=== PATIENT | female | born 1950 | race Caucasian/White ===

== ENCOUNTER 2019-12-19 08:14 | Emergency (ER) | payer MEDICARE, SELFPAY ==
--- NOTE | ~2019-12-19 | XR_ITS ---
XR foot RT min 3V DATE: 12/19/2019 08:51 INDICATION: Foot popliteal walking up stairs this morning. Pain. TECHNIQUE: 4 views COMPARISON: None FINDINGS: There is a nondisplaced acute transverse fracture of the very proximal shaft of the fifth m etatarsal bone. There are prominent osteoarthritic changes of the tarsal and first through third tarsometatarsal join ts. Plantar calcaneal enthesopathy. IMPRESSION: Transverse nondisplaced fracture of the very proximal shaft of the fifth metatarsal bone Reviewed, dictated and finalized at location A.
[2019-12-19 08:23] VITALS: BP 177/79; PULSE 93; RESP 17; TEMP 36.6; O2SAT 100
--- NOTE | 2019-12-19 09:53 | ED.LOWEXIN ---
HPI - Extremity Injury (Lower) General Chief Complaint: Extremity Injury, Lower Stated Complaint: right foot pain Time Seen by Provider: 12/19/19 08:25 Source: patient Mode of arrival: ambulatory Limitations: no limitations History of Present Illness HPI Narrative: This patient is a 69 year old female who presents for evaluation right foot pain. She states this morning she heard a pop in her right foot when she was taking step . She has been unable to bear weight on her foot since. She states her pain is located on lateral side of her foot. She has been dealing with foot pain and swelling for 2 years. complaint: foot injury (right foot) Related Data Allergies Allergy/AdvReac Type Severity Reaction Status Date / Time No Known Allergies Allergy Unverified 05/04/15 18:37 Review of Systems Review of Systems: All systems reviewed & are unremarkable except as noted in HPI and below Neurologic: Denies focal weakness and Denies numbness PMFSH Past Medical History Medical History (Updated 12/19/19 @ 10:06 by Fernanda Trevino MD) Hypertension Surgical History Surgical History (Updated 12/19/19 @ 09:55 by Fernanda Trevino MD) H/O: hysterectomy Social History Social History (Updated 12/19/19 @ 09:55 by Fernanda Trevino MD) Smoking status: Former smoker Gender identity (if verbalized by the patient): Female Exam Const: General: no acute distress and alert Orientation/consciousness: patient oriented x3 Eyes: EOM: EOMs intact bilaterally Cardio: Other: pedal pulses present Skin: General skin exam: normal color Rashes: no rashes Neuro: General: patient oriented x3 and moves all extremities Extrem: Other: right lateral foot with mild swelling and ttp, no tenderness anywhere else Course Consultations Consultation #1: I discussed case with Dr. Bowers who agrees patient can be placed in a post op shoe and he will follow up as outpatient. Vital Signs Vital signs: Vital Signs Temperature 97.9 F 12/19/19 08:23 Pulse Rate 93 12/19/19 08:23 Respiratory Rate 17 12/19/19 08:23 Blood Pressure 177/79 H 12/19/19 08:23 Pulse Oximetry 100 12/19/19 08:23 Temperature 97.9 F 12/19/19 08:23 Pulse Rate 70 12/19/19 10:27 Respiratory Rate 12 12/19/19 10:27 Blood Pressure 177/79 H 12/19/19 08:23 Pulse Oximetry 100 12/19/19 08:23 MDM - Extremity Injury (Lower) Imaging Data Radiologist's impression: ITS Impressions Foot X-Ray 12/19/19 08:56 IMPRESSION: Transverse nondisplaced fracture of the very proximal shaft of the fifth metatarsal bone Discharge Plan Discharge Clinical Impression: Closed nondisplaced fracture of fifth right metatarsal bone Qualifiers: Encounter type: initial encounter Qualified Code(s): S92.354A - Nondisplaced fracture of fifth metatarsal bone, right foot, initial encounter for closed fracture Patient Disposition: Home, Self-Care Condition: Stable Instructions: Antibiotic Form, Foot Fracture in Adults (ED) Additional Instructions: Today you were found to have a fracture in your foot. Wear your post op shoe. Elevate and ice your foot to help with pain and swelling. Call Dr. Bowers to arrange for follow up appointment. I have prescribed pain medication if needed. You can take 1 additional tylenol every 6 hours if need instead of pain medication. Prescriptions: New hydrocodone-acetaminophen [Harman] 5-325 mg tablet 1 tablet PO Q6H PRN (Reason: pain) Qty: 10 RF: 0 Follow-up/Referrals: Jaylen,Uriah Lund MD [Primary Care Provider] - Arpit Bowers MD [Physician] -
[2019-12-19 10:27] VITALS: PULSE 70; RESP 12
== END 2019-12-19 10:28 | disposition home or self-care (01) ==
PROVIDERS: Emergency Provider General Practice; PCP Family Medicine
DX: S92.354A Nondisplaced fracture of fifth metatarsal bone, right foot, initial encounter for closed fracture (principal); Z87.891 Personal history of nicotine dependence; X50.9XXA Other and unspecified overexertion or strenuous movements or postures, initial encounter
CPT/HCPCS: 73630; 99284

== ENCOUNTER 2021-08-19 14:48 | Outpatient (CLI) | payer MEDICARE, SELFPAY ==
--- NOTE | ~2021-08-19 | MM_ITS ---
EXAMINATION: MM scrn antonio implant BI w eliceo HISTORY: Screening mammogram TECHNIQUE: Craniocaudal and mediolateral oblique 3-D tomosynthesis images with implant displacement a nd synthetic 2-D images were generated. Craniocaudal and mediolateral oblique views of the breasts wi thout implant displacement were obtained using full field digital mammography. CAD analysis was submi tted and interpreted. COMPARISON: 03/20/2012 BREAST PARENCHYMAL COMPOSITION: The breasts are extremely dense, which lowers the sensitivity of mamm ography. FINDINGS: There is no evidence of suspicious mass, calcification, or architectural distortion to sugg est malignancy in either breast. There has been no suspicious interval change. IMPRESSION: 1. No mammographic evidence of malignancy. 2. Recommend routine screening mammography in one year. BI-RADS Category 1: Negative Reviewed, dictated and finalized at location A.
--- NOTE | ~2021-08-19 | DEXA_ITS ---
Bone Density Report Name: NADIA LEON Age: 70 Sex: Female Ethnicity: White Date of : 1950 Indication: postmenopausal; screening for osteoporosis; parental hip fracture; prior fracture; hysterectomy; Referring Provider: RENETTA GALLARDO Study: Bone densitometry was performed. Exam Date: August 19, 2021 Accession number: [id number] Bone Density: Region BMD T-score Z-score Classification AP Spine(L1-L4) 1.000 -0.4 1.8 Normal Femoral Neck (Left) 0.680 -1.5 0.4 Osteopenia Total Hip (Left) 0.828 -0.9 0.7 Normal Femoral Neck (Right) 0.657 -1.7 0.2 Osteopenia Total Hip (Right) 0.796 -1.2 0.5 Osteopenia Total Hip Mean 0.812 -1.1 0.6 Osteopenia World Health Organization criteria for BMD impression classify patients as: Normal (T-score at or above -1.0), Osteopenia (T-score between -1.0 and -2.5), or Osteoporosis (T-score at or below -2.5). 10-year Fracture Risk(1): Major Osteoporotic Fracture 26% Hip Fracture 9.2% Reported Risk Factors: [place] (), Neck BMD=0.657, BMI=32.0, previous fracture, parental fracture (1) FRAX(R) Version 3.08. Fracture probability calculated for an untreated patient. Fracture probability may be lower if the patient has received treatment. Clinical Information Provided by Patient: Has had a low trauma fracture Parent has had a hip fracture Has used the following medications: Vitamin D, Calcium Has the following medical conditions: Hysterectomy Patient maximum height was 62 Menopause Age: 48 Drinks caffeinated beverages Onset of menses at age 12 Number of children 3 Impression: The patient has low bone mass, based on the Right Femoral Neck T-score. The patient has an estimated ten-year risk of hip fracture of 9.2% and an estimated ten-year risk of major fracture of 26%, based on the WHO FRAX algorithm. The patient has risk factors, including: parental hip fracture, previous fracture. Discussion: BONE DENSITY IS LOW AT ONE OR MORE SKELETAL SITES. THE PATIENT'S BMD AND CLINICAL RISK FACTORS CONTRIBUTE TO THIS PATIENT'S HIGH RISK OF FRACTURE. This patient's lowest T-score is low at one or more skeletal sites. It meets the World Health Organization's (WHO) criteria for ?low bone mass? (T-score between -1.0 and -2.5). The patient's 10-year risk of hip fracture and 10 year risk of a major osteoporotic fracture as calculated by FRAX exceeds the threshold where pharmacological therapy is recommended by the National Osteoporosis Foundation (NOF). However, all treatment decisions require clinical judgment and consideration of individual patient factors, including patient preferences, comorbidities, previous drug use, risk factors not captured in the FRAX model (e.g., frailty, falls, vitamin D deficiency, increased bone turnover, interval significant dec
== END 2021-08-19 14:49 | disposition home or self-care (01) ==
LOC: ANHIMG 14:54
PROVIDERS: PCP Family Medicine; Visit Provider Obstetrics & Gynecology
DX: Z12.31 Encounter for screening mammogram for malignant neoplasm of breast (principal); M85.89 Other specified disorders of bone density and structure, multiple sites; M85.852 Other specified disorders of bone density and structure, left thigh; M85.851 Other specified disorders of bone density and structure, right thigh
CPT/HCPCS: 77063; 77067; 77080